=== PATIENT | male | born 1960 | race Caucasian/White ===

== ENCOUNTER 2019-12-30 12:54 | Outpatient (CLI) | payer MEDICAID ==
[~2019-12-30] VITALS: Ht 172.7 cm; Wt 73.5 kg
[2019-12-30 13:11] VITALS: BP 104/71
--- NOTE | 2019-12-30 16:30 | Consultation ---
DATE OF CONSULTATION: 12/30/2019 CONSULTING PHYSICIAN: Dung May MD. CHIEF COMPLAINT: Dysphagia. PAST MEDICAL HISTORY: Hemorrhoids. PAST SURGICAL HISTORY: Bladder surgery. MEDICATIONS: Clarithromycin and Nasacort. FAMILY HISTORY: No family history of GI malignancies. SOCIAL HISTORY: The patient denies any tobacco, alcohol, or drug abuse. ALLERGIES: Aspirin, NSAIDs. REVIEW OF SYSTEMS: The patient has dysphagia for many years. No prior history of endoscopy. Last colonoscopy in 2018. PHYSICAL EXAMINATION: VITAL SIGNS: Temperature 97, blood pressure 104/71, pulse , respirations 20. Height is 5 feet 8 inches, weight is 162. HEENT: Normocephalic and atraumatic. Sclerae area anicteric. NECK: Supple. No evidence of obvious lymphadenopathy. CARDIOVASCULAR: Regular rate and rhythm. Plus S1 and S2. LUNGS: Clear to auscultation bilaterally. ABDOMEN: Positive bowel sounds. Soft and nontender. No rebound. No guarding. No peritoneal sign. EXTREMITIES: No cyanosis. No clubbing. No edema. ASSESSMENT AND PLAN: This is a 59-year-old male with dysphagia symptoms on and off, mainly to solid dysphagia, currently not on any PPI, no prior history of endoscopy. PLAN: We will start the patient on omeprazole 40 mg daily. The patient may also need endoscopy given his age and dysphagia symptoms. We are going to try to get authorization for that. Dung May M.D. DR: Jerrod JOB#: [id number] CC:
== END 2019-12-30 14:54 | disposition home or self-care (01) ==
LOC: PAN 12:54
DX: R13.10 Dysphagia, unspecified (principal); Z88.6 Allergy status to analgesic agent; Z79.899 Other long term (current) drug therapy
CPT/HCPCS: G0463